=== PATIENT | female | born 1945 | race Caucasian/White ===

== ENCOUNTER 2017-08-26 08:00 | Inpatient (IN) | payer MEDICARE ==
[~2017-08-26] VITALS: Ht 160 cm; Wt 85.3 kg
[~2017-08-26 08:00] MED LIST: ACETAMINOPHEN-1 EAC1 PO; ASPIRIN EC81 M1 PO; CARBIDOPA-LEVO1 EAC2 PO; CIPROFLOXACIN500 M3 PO; CLONAZEPAM 1 MG1 M1 PO; CYMBALTA60 MG PO; DEPAKOTE ER500 MG PO; FLAGYL500 MG PO; LISINOPRIL10 MG PO; LOPRESSOR HCT1 EAC2 PO; MIRALAX255 GM PO; MOBIC15 MG PO; NORCO 5-325 TA1 EACH PO; PREDNISONE 10 M10 MG PO; PROZAC10 MG PO; QUETIAPINE FUM100 MG PO; TRAZODONE HCL50 MG PO; VESICARE 5 MG TA5 M1 PO
[2017-08-26 08:03] VITALS: BP 122/69
--- NOTE | 2017-08-26 08:20 | NUR ---
PT IS VERY CONFUSED ABOUT WHY AND HOW SHE GOT HERE. PT WAS FOUND OUTSIDE. PT STATES SHE WAS AT THE HOUSE [place] [address] FOR " A GREEN PARTY" SHE TOOK HER GRANDAUGHTER HOME AND WAS GOING BACK TO "GET MILK, BUT NOT SURE SHE SHOULD JUST TAKE IT BECAUSE SHE DID NOT KNOW THEM" PT KNOWS WHO SHE IS AND WHERE SHE IS. PT TAKEN TO CT D/T ACUTE CONGUSION. PER EMS THE SAYS PT IS NOT NORMALLY CONFUSED. PT LAST KNOW NORMAL TIME IS UNKNOWN.
[2017-08-26 08:48] LABS: HEMATOCRIT 42.4 % (37.0-47.0); HEMOGLOBIN 14.2 gm/dL (12.0-15.0); MCHC 33.5 g/dL (28.0-37.0); MCV 89.4 fL (80.0-100.0); MPV 7.9 fl. (7.2-11.1); NUCLEATED RBCS 0 /100WBC; PLATELET COUNT* 261 thou/uL (150-400); RBC 4.74 mil/uL (4.20-5.00); WBC 6.9 thou/uL (4.0-11.0)
[2017-08-26 08:59] LABS: CALCIUM 9.1 mg/dL (8.5-10.1); CREATININE 1.2 mg/dL (0.6-1.3); POTASSIUM 3.9 mmol/L (3.5-5.1)
[2017-08-26 09:01] LABS: BE 3.4 mmol/L (-2 to +3); HCO3 28.6 mmol/L (22.0-26.0); PCO2 45.5 mmHg (35.0-45.0); PO2 70.6 mmHg (75.0-100.0); pH 7.416 (7.340-7.450)
--- NOTE | 2017-08-26 09:03 | NUR ---
PT REPORTS PT HAS HAD INCREASED CONFUSION OVER THE LAST 3 WEEKS. PT HAS NOT BEEN TAKING MEDS APPROPREITLY AND HE HAS HAD TO START MONITORING HER MEDS. HE STATES SHE TOOK 2 KL[place] LAST NIGHT
[2017-08-26 09:04] LABS: ALBUMIN 3.6 g/dL (3.4-5.0); TOTAL PROTEIN 7.3 g/dL (6.4-8.2)
[2017-08-26 09:11] LABS: ABSOLUTE BASOPHILS 0.1 thou/uL (0.0-0.2); ABSOLUTE EOSINOPHILS 0.1 thou/uL (0.0-0.7); ABSOLUTE LYMPHOCYTES 0.6 thou/uL (0.8-5.3); ABSOLUTE MONOCYTES 0.2 thou/uL (0.0-1.2); ABSOLUTE NEUTROPHILS 5.9 thou/uL (1.6-8.1); ATYPICAL LYMPHS 1 %; METAMYELOCYTES 1 %; PLATELET ESTIMATE ADEQUATE
[2017-08-26] MEDS ORDERED: LAMISIL250 MG PO (09:13)
[2017-08-26 10:09] LABS: URINE BILIRUBIN NEGATIVE (Negative); URINE BLOOD NEGATIVE (Negative); URINE CLARITY CLEAR; URINE COLOR YELLOW; URINE GLUCOSE-RANDOM NEGATIVE (Negative); URINE KETONES NEGATIVE (Negative); URINE LEUKOCYTES-REFLEX NEGATIVE (Negative); URINE NITRITE-REFLEX NEGATIVE (Negative); URINE PROTEIN NEGATIVE (Negative); URINE SPECIFIC GRAVITY >= 1.030 (1.005-1.030)
--- NOTE | 2017-08-26 12:51 | NUR ---
LUNCH TRY PROVIDED.
--- NOTE | 2017-08-26 20:09 | NUR ---
I ASSUMED CARE OF THE PATIENT AT 1635 AN ADMISSION FROM THE ED. SHE IS CONFUSED. FAMILY IS AT THE BEDSIDE. PATIENT NEEDS ARE MET AND ADMISSION IS COMPLETED INCLUDING MEDS. LOTS OF EDUCATION WITH THE FAMILY ON DEMENTIA AND MEDICATION. ORDERS ARE ENTERED. CONTINUOUS FLUIDS ARE INFUSING. 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 CM NEEDS CONSULTED FOR DPOA PAPERWORK. WILL CONTINUE TO MONITOR.
[2017-08-27] VITALS: BP 122/48
[2017-08-27 02:10] LABS: GLYCOHEMOGLOBIN (HGB A1C) 6.4 % (4.8-5.6)
--- NOTE | 2017-08-27 03:46 | NUR ---
ASSUMED PT CARE AT 1930, NURSING ASSESSMENT COMPLETED AT START OF SHIFT, PT VOICED NO CONCERNS, TRACING ST ON VET ASSISTANT LOW 100'S. DENIES PAIN. PT AAOX4, MILD CONFUSION NOTED, FORGETFUL AT TIMES. IVF INFUSING, SCD'S IN PLACE. CALL LIGHT WITHIN REACH.
[2017-08-27 04:00] VITALS: BP 131/80
[2017-08-27 05:02] LABS: HEMATOCRIT 39.6 % (37.0-47.0); HEMOGLOBIN 13.5 gm/dL (12.0-15.0); MCH 30.3 pg (26.0-34.0); MCHC 34.1 g/dL (28.0-37.0); MCV 88.9 fL (80.0-100.0); MPV 7.6 fl. (7.2-11.1); RBC 4.45 mil/uL (4.20-5.00); RDW-CV 13.4 % (10.5-14.5); WBC 4.2 thou/uL (4.0-11.0)
[2017-08-27 05:16] LABS: ALKALINE PHOSPHATASE 71 U/L (46-116); ANION GAP 5 mmol/L (7-16); BUN 14 mg/dL (7-18); CALCIUM 8.5 mg/dL (8.5-10.1); CHLORIDE 99 mmol/L (98-107); CO2 32 mmol/L (21-32); GLUCOSE 133 mg/dL (70-99); MAGNESIUM 1.5 mg/dL (1.8-2.4); POTASSIUM 4.6 mmol/L (3.5-5.1); SGOT 121 U/L (15-37); SGPT 33 U/L (30-65); SODIUM 136 mmol/L (136-145); TOTAL PROTEIN 6.3 g/dL (6.4-8.2); TROPONIN-I LEVEL <0.06 ng/mL (<0.06)
[2017-08-27 08:00] VITALS: BP 126/77
--- NOTE | 2017-08-27 13:22 | NUR ---
ASSUMED CARE OF PATIENT THIS AM AT 0730. PATIENT IS DROWSY, ORIENTED TO PERSON THIS AM. SHE KNEW THAT IT WAS IN THE HOSPITAL BUT THOUGHT SHE WAS AT [place]. PATIENT REORIENTED PERSON. SHE HAS CONTINUED LETHARGIC THIS AM AND SHE INITIALLY DENIED PAIN WITH ASSESSMENT. PATIENT LATER SAID THAT SHE WAS HAVING RLQ ABD PAIN AND NAUSEA. NO EMESIS NOTED. DR ACHARYA PAGED FOR ORDERS. PATIENT TAKEN TO RADIOLOGY FOR MRI PER W/C AND RETURNED. RAILROAD CAR REPAIRMAN REPORTED THAT PATIENT BECAME INCONTINENT OF STOOL IN THEIR DEPARTMENT. PATIENT RETURNED TO THE ROOM AND PLACED BACK ON THE MONITOR. DR ACHARYA ALSO NOTIFIED OF PATIENT'S MAGNESIUM LEVEL OF 1.5. ELECTROLYTE REPLACEMENT THERAPY ORDERED. BEDSIDE EEG PERFORMED. PATIENT IS RESTING AT THIS TIME. CALL LIGHT IS IN REACH. IS IN AT THE BEDSIDE. BED ALARM IS ON.
--- NOTE | 2017-08-27 14:15 | NUR ---
MET WITH PT AND SPOUSE,MELODIE, TO DISCUSS HOME SITUATION/DC PLANNING. PT LIVES WITH SPOUSE IN [place]. SHE IS NORMALLY FAIRLY INDEPENDENT. USES NO EQUIPMENT. PT STATES SHE DOESN'T HAVE A DPOA, EDUCAITON GIVEN. PT SEEMS OVERWHELMED TODAY WITH INFO AND TEARFUL AT TIMES. SHE WAS NOT ABLE TO REMEMBER MUCH OF YESTERDAY OTHER THAN SHE THOUGHT SHE WAS GOING TO A [employer] PARTY ACROSS THE WAY AT A NEIGHBORS. SPOUSE STATES THAT THEY WERE WATCHING THEIR 2YR/OLD GREAT-GRANDDTR OVER NIGHT THE BABY'S MOTHER HAD TO GO TO THE ER AND WENT HOME TO REST AFTER THAT. SPOUSE HEARD AND SAW PT/GREAT-GRANDDTR IN THE BATHROOM AROUND 650AM YESTERDAY AM, HE STATES HE THINKS HE FELL BACK ASLEEP TO WOKE UP TO PERSONAL LOAN SPECIALIST IN HIS HOME AT 725AM. STATES PT AND BABY WERE FOUND OUTSIDE BY A NEIGHBOR AND EMS WAS CALLED. PT UPSET ABOUT HEARING STORY AGAIN AND BECAME TEARFUL. SHE HAS NOT HAD HH OR BEEN TO SNF. PLAN IS FOR HER TO RETURN HOME. SPOUSE STATES PT IS ABLE TO DO HER OWN ADLS, HELPS WTIH CHORES AROUND THE HOUSE BUT HE DOES MOST OF THE 'HEAVY' STUFF. WILL FOLLOW
[2017-08-27 15:36] VITALS: BP 132/77
--- NOTE | 2017-08-27 17:47 | EKG ---
[place] [address] ELECTROCARDIOGRAM REPORT Name: BOBY MCGOWAN Room: [address] ADM IN M.R.#: [id number] Admission: 08/26/17 Attend Phys: Vineet Miller, Discharge: Date of : 41 Report #: [id number] THIS REPORT FOR: //name// [facility] ED Test Date: 2017-08-26 Test Time: 09:12:38 Pat Name: BOBY MCGOWAN Department: Room: [facility] Gender: F Manager Of Pharmacy: Liset HERNANDEZ : 1945 Requested By: Shona Aquino Order Number: [id number] MD: Andrea Santos Measurements Intervals [place] Rate: 99 P: 52 HI: 170 QRS: -22 QRSD: 129 T: 52 QT: 405 QTc: 520 Interpretive Statements Sinus rhythm Left bundle branch block Compared to ECG 01/06/2013 13:32:15 Left bundle-branch block now present T-wave abnormality no longer present Electronically Signed On 08-27-2017 17:46:48 CDT by Andrea Santos [email or web address] <ELECTRONICALLY SIGNED> By: Andrea Santos MD, FACC 08/27/17 1746 0912 0912 Andrea Santos MD, [facility] /EPI
[2017-08-27 20:00] VITALS: BP 129/57
[2017-08-28] VITALS (7 sets, daily range): BP systolic 131–168; BP diastolic 73–96
--- NOTE | 2017-08-28 02:53 | NUR ---
PT ALERT ORIENTED TO SELF PLACE AND TIME. PT IS SOMEWHAT CONFUSED ABOUT THE EVENTS THAT BROUGHT HER HERE. UP TO BR WITH STD BY ASSIST OF ONE. DENIES PAIN. TELEMETRY SHOWS SR. 1/2NS WITH 20 KCL AT 100MLS/HR. PRN MAG DOSE GIVEN HS FOR MG LEVEL 1.5. ON RA. VSS WILL CONTINUE TO MONITOR.
[2017-08-28 05:27] LABS: ABSOLUTE EOSINOPHILS 0.3 thou/uL (0.0-0.7); ABSOLUTE LYMPHOCYTES 1.9 thou/uL (0.8-5.3); ABSOLUTE MONOCYTES 0.4 thou/uL (0.0-1.2); ABSOLUTE NEUTROPHILS 1.9 thou/uL (1.6-8.1); BASOPHILS 0.5 %; EOSINOPHILS 5.6 %; HEMOGLOBIN 13.5 gm/dL (12.0-15.0); LYMPHOCYTES 43.3 %; MCH 30.7 pg (26.0-34.0); MCHC 33.7 g/dL (28.0-37.0); MCV 90.8 fL (80.0-100.0); MONOCYTES 9.1 %; MPV 8.3 fl. (7.2-11.1); NUCLEATED RBCS 0 /100WBC; PLATELET COUNT* 257 thou/uL (150-400); POLYS 41.5 %; RDW-CV 13.7 % (10.5-14.5); WBC 4.5 thou/uL (4.0-11.0)
[2017-08-28 05:50] LABS: ALBUMIN 3.1 g/dL (3.4-5.0); CALCIUM 9.4 mg/dL (8.5-10.1); CREATININE 0.9 mg/dL (0.6-1.3); MAGNESIUM 1.9 mg/dL (1.8-2.4); TOTAL BILIRUBIN 0.7 mg/dL (<0.1-1.0); TOTAL PROTEIN 6.4 g/dL (6.4-8.2)
[2017-08-28 05:51] LABS: POTASSIUM 5.6 mmol/L (3.5-5.1)
--- NOTE | 2017-08-28 06:51 | NUR ---
AM K+ 5.6. DR BLANDON NOTIFIED VIA YOU CALL . NO NEW ORDERS.
--- NOTE | 2017-08-28 11:19 | NUR ---
ASSUMED CARE OF PT AT 0730. PT RESTING IN BED WAITING FOR BREAKFAST. PT A&0X4, FORGETFUL AND CONFUSED AT TIMES. PT TRACING SR ON THE GEAR MACHINE OPERATOR GENERAL. ON RA SAT 94%. DENIES ANY SHORTNESS OF BREATH OR PAIN AT THIS TIME. PT POTASSIUM 5.6 THIS AM. NS WITH 20K STOPPED THIS AM. PT UP SBA TO BATHROOM. PT GOAL FOR TODAY IS TO WORK WITH PHYSICAL THERAPY, UP TO CHAIR FOR MEALS AND MONITOR ORIENTATION. POSSIBLE DISCHARGE HOME TODAY OR TOMORROW 08/29. PT HERE AT BEDSIDE. AM ASSESSMENT CHARTED. MEDICATIONS PER JUL. PT REPOSITIONS SELF IN BED WITH REMINDERS. HOURLY ROUNDING OBSERVED. BED IN LOW POSITION. BED/CHAIR ALARM IN PLACE. FALL PRECAUTIONS IN PLACE. CALL LIGHT WITHIN REACH. WILL CONTINUE PLAN OF CARE.
[2017-08-28 11:43] LABS: CALCIUM 9.2 mg/dL (8.5-10.1); POTASSIUM 3.9 mmol/L (3.5-5.1)
--- NOTE | 2017-08-28 17:10 | NUR ---
NO ACUTE CHANGES THROUGHOUT SHIFT. REFER TO CHARTING. IVF WITH POTASSIUM DISCONTINUED. PT PROGRESSING TOWARDS GOALS. POSSIBLE DISCHARGE TOMORROW 08/29. PT A&0X3-4, FORGETFUL AND CONFUSED AT TIMES. CONTINUES TO TRACE SR ON THE SAP SD ANALYST. ON RA SAT UPPER 90'S. DENIES ANY PAIN OR SHORTNESS OF BREATH. PT UP WITH 1 ASSIST SBA TO BATHROOM. PT WORKED WITH PHYSICAL THERAPY TODAY. TOLERATED WELL. UP TO CHAIR FOR MEALS. NEURO HERE TO SEE PT TODAY. NO NEW ORDERS RECEIVED AT THIS TIME. AT BEDSIDE THROUGHOUT SHIFT. MEDICATIONS PER JUL. PT REPOSITIONS SELF WITH REMINDERS. HOURLY ROUNDING OBSERVED. BED IN LOW POSITION. BED ALARM IN PLACE. FALL PRECAUTIONS IN PLACE. CALL LIGHT WITHIN REACH. WILL CONTINUE PLAN OF CARE.
--- NOTE | 2017-08-28 17:26 | CON ---
[address] [address] CONSULTATION Name: JUAN MBOBY E Room: [address] IN M.R.#: [id number] Admission: 08/26/17 Attend Phys: Vineet Miller, Discharge: Date of : 41 Report #: [id number] THIS REPORT FOR: //name// CC: Loretta Waltondagmar Miller DATE OF SERVICE: 08/27/2017 HISTORY OF PRESENT ILLNESS: This is a 72-year-old female patient who was admitted with pretty poorly defined history. Sometime they mentioned that the patient was tremulous, the other time they mentioned the patient was shuffling and having gait disturbances and other time and they thought she was confused and was having seizure-like activity. This has started in the last few weeks. It was associated with depression. noticed that the patient was not taking her medications and they started the medication in the hospital and she appeared to be better. These symptoms came spontaneously and there was no trauma associated with that. REVIEW OF SYSTEMS: A 14-point review of system was carried out. The patient has been depressed and is feeling more and more depressed. She has this tremor, but that is better after restarting the Sinemet. She has been confused. This confusion is more than her baseline. She has taken some extra dose of Klonopin. She said she took it for her itching. She indicates that she is not having any new eye, ENT, cardiac, respiratory, GI, , musculoskeletal, constitutional, hematological, throat, allergic or endocrine symptom which is new and associated with present symptomatology. She does have a history that she is feeling depressed. PAST MEDICAL HISTORY: She had a gallbladder last year. FAMILY HISTORY: Negative for any congenital epilepsies. SOCIAL HISTORY: She denies use of alcohol or tobacco. PHYSICAL EXAMINATION: Indicate this patient is alert, responsive. She can tell me what month and what day it is. She could not name the president. She knew she was in [facility]. Her memory and fund of knowledge is diminished. Cranial nerve examination 2-12 is unremarkable. She has symmetrical strength, sensation, reflexes and tone in all 4 extremities. There is no papilledema and there is no meningeal sign. On my examination, she does not have much tremor today. She is otherwise well-developed individual who does not have any dysmorphic features of eyes, ears and face. Her hearing and vision looks adequate. She has no thyroid mass or carotid bruit. Her pulses are palpable. She has no edema, cyanosis or jaundice. Cardiac examination does [place] [address] CONSULTATION Name: BOBY MCGOWAN Room: [address] IN [facility].#: [id number] Admission: 08/26/17 Attend Phys: Vineet Miller, Discharge: Date of : 41 Report #: [id number] fibrillation or any respiratory difficulty. Abdominal examination is benign. No respiratory difficulty or rhonchi was noticed. Her blood pressure is 131/80, respiration is 18, pulse is 102, temperature is 99.2. LABORATORY DATA: Indicate a normal white count. GFR is normal. Magnesium is at trace low. Vitamin B12 is normal. She did have a CT scan of the head, which does not show any acute changes. She had an MRI in 12/2016 and I reviewed that and that does not appear to be showing any definite change from her chronic changes. IMPRESSION: Complicated patient. I need to review the patient's record in the office to see what she has. It looks like she has been treated with Parkinson disease, but there is a question of seizures in this patient, history is not very impressive. This patient is depressed and I suspect that is contributing to her symptoms and may be major part of it. RECOMMENDATIONS: 1. We will go and review the records in the hospital. 2. We will check an EEG. 3. We will check an MRI. 4. We will ask Physical Therapy to ambulate the patient. 5. If possible, it will be desirable to get a psychiatric consult in this patient. We will reevaluate the situation after this workup is available. Thank you very much for this referral and if you have any question, please feel free to contact me. <ELECTRONICALLY SIGNED> By: Dereje Peguero MD 08/28/17 1726 0958 [id number] Peguero MD /nt
--- NOTE | 2017-08-28 17:26 | EEG ---
[address] [address] EEG STUDY REPORT Name: JUAN MBOBY Adina Room: [address] IN M.R.#: [id number] Admission: 08/26/17 Attend Phys: Vineet Miller, Discharge: Date of : 41 Report #: [id number] THIS REPORT FOR: //name// CC: Loretta Concepciondagmar Miller DATE OF SERVICE: 08/27/2017 This patient is being evaluated for altered mental status. EEG was done by placing the electrodes by standard 10/20 system of electrode placement. Both referential and sequential montages were used for recording. Background activity in this patient's EEG is about 8 Hz and 30 microvolts. It is intermixed with theta range slowing on both sides. The patient goes to sleep that is associated with bilaterally symmetrical sleep spindle and vertex sharp waves. Throughout the record, no active epileptiform activity was noticed. Photic stimulation was unremarkable. IMPRESSION: This patient's EEG is intermixed with theta range slowing on both sides. That is a nonspecific abnormality, which can occur with encephalopathy, effect of psychotropic medication, dementia, etc. Clinical correlation is recommended. <ELECTRONICALLY SIGNED> By: Dereje Peguero MD 08/28/17 1726 1553 [id number] Peguero MD /nt
[2017-08-28] MEDS ORDERED: CLONAZEPAM 0.50.5 M1 PO (17:46)
--- NOTE | 2017-08-29 03:21 | NUR ---
PT ALERT ORIENTED. CALLS OUT APPROPRIATELY FOR [facility]SC. TELEMETRY SHOWS SR BBB. ON RA. WILL CONTINUE TO MONITOR.
[2017-08-29 04:26] VITALS: BP 154/78
[2017-08-29 06:14] LABS: ALBUMIN 3.2 g/dL (3.4-5.0); CALCIUM 9.4 mg/dL (8.5-10.1); CREATININE 0.8 mg/dL (0.6-1.3); MAGNESIUM 1.9 mg/dL (1.8-2.4); POTASSIUM 4.6 mmol/L (3.5-5.1)
[2017-08-29 08:00] VITALS: BP 163/83
--- NOTE | 2017-08-29 11:31 | NUR ---
ASSUMED CARE OF PATIENT THIS AM AT 0730. PATIENT IS ALERT, ORIENTED X 4 BUT REMAINS FORGETFUL AND ANXIOUS. TELE SHOWS SR WITH BBB. PATIENT C/O A HEADACHE AND ANXIETY. SHE WAS MEDICATED FOR PAIN AND ANXIETY X 1. DOCTORS IN TO ROUND AND DISCHARGE ORDERS WRITTEN. PATIENT TO DISCHARGE TO HOME THIS AFTERNOON. SHE SAID THAT MEDICATIONS WERE EFFECTIVE FOR HER EARLIER COMPLIANTS. IS IN AT BEDSIDE.
[2017-08-29 11:33] VITALS: BP 144/61
[2017-08-29 11:40] VITALS: BP 144/61
--- NOTE | 2017-08-29 11:41 | NUR ---
MET WITH PT, SPOUSE AND DIL. PT PLANS TO [place]URN [place], SPOUSE CONFIRMS AND IS AWARE PT IS WEAK, HE WILL ASSIST HER. DISCUSSED HH, OPTIONS GIVEN. THEY CHOSE [facility]. CALLED AND FAXED ORDERS TO [facility]. NO OTHER NEEDS ID'D
[2017-08-29] MEDS ORDERED: LEVAQUIN 250 M250 MG PO (12:36)
[2017-08-29 12:40] VITALS: BP 144/61
== END 2017-08-29 15:00 | disposition home health service (06) | DRG 917 ==
LOC: M.ERS 08:00 → M.2W 10:05 → M.TBA-ER 10:05 → M.2W 16:06
PROVIDERS: Internal Medicine; Personal Emergency Response Attendant; ADMIT Family Medicine
DX: T42.4X1A Poisoning by benzodiazepines, accidental (unintentional), initial encounter (principal); G93.40 Encephalopathy, unspecified; I10 Essential (primary) hypertension; E11.9 Type 2 diabetes mellitus without complications; G20 Parkinson's disease; F31.9 Bipolar disorder, unspecified; F41.9 Anxiety disorder, unspecified; E87.5 Hyperkalemia; F02.80 Dementia in other diseases classified elsewhere, unspecified severity, without behavioral disturbance, psychotic disturbance, mood disturbance, and anxiety; R32 Unspecified urinary incontinence; E86.0 Dehydration; R73.9 Hyperglycemia, unspecified; E66.9 Obesity, unspecified; Z68.33 Body mass index [BMI] 33.0-33.9, adult; Z90.710 Acquired absence of both cervix and uterus; Z79.899 Other long term (current) drug therapy; Z81.8 Family history of other mental and behavioral disorders; Y92.89 Other specified places as the place of occurrence of the external cause

== ENCOUNTER → 2017-09-28 | Outpatient (CLI) | payer MEDICARE ==
[~2017-09-28] MED LIST changes: +CLONAZEPAM 0.50.5 M1 PO; +LAMISIL250 MG PO; +LEVAQUIN 250 M250 MG PO
== END ==
LOC: M.ULTRA 09-20 11:30
DX: E07.89 Other specified disorders of thyroid (principal); E83.52 Hypercalcemia

== ENCOUNTER → 2018-02-27 | Outpatient (CLI) | payer MEDICARE | LOC: M.ULTRA 01-04 14:30 → M.RAD 01-22 13:30 → M.ULTRA 01-22 13:30 → M.RAD 02-06 14:00 → M.ULTRA 02-13 13:00 → M.RAD 02-13 13:30 → M.ULTRA 02-18 14:30 → M.RAD 02-19 13:00 → M.ULTRA 02-22 14:30 → M.RAD 02-22 15:00 → M.ULTRA 02-26 11:30 → M.RAD 13:24 | DX: Z12.31 Encounter for screening mammogram for malignant neoplasm of breast (principal); R22.9 Localized swelling, mass and lump, unspecified ==

== ENCOUNTER → 2018-08-15 | Outpatient (CLI) | payer MEDICARE | LOC: M.RAD 10:25 | DX: R05 Cough (principal) ==

== ENCOUNTER → 2018-09-27 | Outpatient (CLI) | payer MEDICARE | LOC: M.NUC 09-25 07:30 | DX: R19.7 Diarrhea, unspecified (principal); R14.0 Abdominal distension (gaseous); R14.1 Gas pain; R10.9 Unspecified abdominal pain ==

== ENCOUNTER → 2018-10-09 | Outpatient (CLI) | payer MEDICARE | LOC: M.ULTRA 10-03 11:30 | DX: R10.9 Unspecified abdominal pain (principal); R11.0 Nausea; Z90.49 Acquired absence of other specified parts of digestive tract ==

== ENCOUNTER → 2019-05-19 | Outpatient (CLI) | payer MEDICARE | LOC: M.RAD 14:51 | DX: R14.0 Abdominal distension (gaseous) (principal) ==

== ENCOUNTER → 2019-06-30 | Outpatient (CLI) | payer MEDICARE | LOC: M.RAD 06-04 13:00 → M.CT 12:43 → M.RAD 13:30 | DX: Z12.31 Encounter for screening mammogram for malignant neoplasm of breast (principal); G31.9 Degenerative disease of nervous system, unspecified; F03.91 Unspecified dementia, unspecified severity, with behavioral disturbance; E16.1 Other hypoglycemia; Z78.0 Asymptomatic menopausal state ==

== ENCOUNTER → 2019-08-19 | Outpatient (CLI) | payer MEDICARE | LOC: M.RAD 16:13 | DX: C50.411 Malignant neoplasm of upper-outer quadrant of right female breast (principal) ==

== ENCOUNTER 2021-07-08 12:27 | Emergency (ER) | payer MEDICARE ==
[~2021-07-08] VITALS: Ht 160 cm; Wt 68.0 kg
[2021-07-08] MEDS ORDERED: BUSPIRONE HCL15 MG PO (13:09)
[2021-07-08] MEDS ORDERED: ARICEPT10 M1 PO (13:10)
[2021-07-08] MEDS ORDERED: FENOFIBRATE150 MG PO (13:10)
[2021-07-08] MEDS ORDERED: VITAMIN B-121000 MC2 SUBLING (13:10)
[2021-07-08] MEDS ORDERED: HYDROXYZINE HCL25 M2 PO (13:11)
[2021-07-08] MEDS ORDERED: ANASPAZ0.125 MG PO (13:12)
[2021-07-08] MEDS ORDERED: OMEPRAZOLE40 MG PO (13:13)
[2021-07-08] MEDS ORDERED: DITROPAN XL10 M1 PO (13:14)
[2021-07-08] MEDS ORDERED: TRAZODONE HCL100 MG PO (13:14)
[2021-07-08 13:21] LABS: HEMATOCRIT 41.4 % (37.0-47.0); HEMOGLOBIN 13.5 gm/dL (12.0-15.0); MCH 27.1 pg (26.0-34.0); MCHC 32.6 g/dL (28.0-37.0); MCV 83.1 fL (80.0-100.0); MPV 7.9 fl. (7.2-11.1); RBC 4.98 mil/uL (4.20-5.00); RDW-CV 15.7 % (10.5-14.5)
[2021-07-08 13:42] LABS: CALCIUM 9.5 mg/dL (8.5-10.1); CREATININE 1.2 mg/dL (0.6-1.3); POTASSIUM 3.6 mmol/L (3.5-5.1)
--- NOTE | 2021-07-08 15:17 | EKG ---
[place] [address] ELECTROCARDIOGRAM REPORT Name: BOBY MCGOWAN Room: [facility]#: [id number] Admission: 07/08/21 Attend Phys: Discharge: Date of : 41 Date of Service: 07/08/21 1257 Report #: [id number] THIS REPORT FOR: //name// [facility] ED Test Date: 2021-07-08 Test Time: 12:57:54 Pat Name: BOBY MCGOWAN Department: Room: Gender: Gallery Or Museum Curator: [facility] : 1945 Requested By: David Sainz Order Number: [id number] MD: Nicholas Velez Measurements Intervals [place] Rate: 90 P: 57 NV: 182 QRS: -30 QRSD: 128 T: 102 QT: 419 QTc: 513 Interpretive Statements Sinus rhythm Probable left atrial enlargement Left bundle branch block Compared to ECG 08/26/2017 09:12:38 No significant changes Electronically Signed On 07-08-2021 15:17:37 ACCREDITATION MANAGER by Nicholas Velez [email or web address] <ELECTRONICALLY SIGNED> By: Nicholas Velez MD, [facility] 07/08/21 1517 1257 1257 Nicholas Velez MD, [facility] /EPI
[2021-07-08 15:58] VITALS: BP 170/70
== END 2021-07-08 15:59 | disposition home or self-care (01) ==
LOC: M.ERS 12:27
PROVIDERS: Emergency Medicine Emergency Medical Services
DX: I10 Essential (primary) hypertension (principal); E11.9 Type 2 diabetes mellitus without complications; G20 Parkinson's disease; F31.9 Bipolar disorder, unspecified; F41.9 Anxiety disorder, unspecified; Z90.710 Acquired absence of both cervix and uterus; Z98.890 Other specified postprocedural states; Z90.49 Acquired absence of other specified parts of digestive tract; Z79.891 Long term (current) use of opiate analgesic; Z79.899 Other long term (current) drug therapy